=== PATIENT | male | born 1945 | race Caucasian/White ===

== ENCOUNTER 2018-08-06 08:08 | Emergency (ER) | payer OTHER, MEDICARE ==
[~2018-08-06] VITALS: Ht 180.3 cm; Wt 49.4 kg
--- OUTSIDE RECORDS SUMMARY | ~2018-08-06 | XMS | Encounter Summary ---
Demographics + + + | Address | [address] | | | [place] [address] | + + + | Home Phone | | + + + | Preferred Language | Unknown | + + + | Marital Status | | + + + | Methodist Affiliation | Unknown | + + + | Race | Unknown | + + + | Ethnic Group | Unknown | + + + Author + + + | Author | [facility] | | | and [place] | + + + | Organization | [facility] | | | and [place] | + + + | Address | Unknown | + + + | Phone | Unavailable | + + + Support + + + + + | Name | Relationship | Address | Phone | + + + + + | Cee Haddad | ECON | [address] | | | | | [place] | | | | | [address] | | + + + + + Care Team Providers + +------+ + | Care Program Management Specialist Name | Role | Phone | + +------+ + PCP | Unavailable | + +------+ + Encounter Details +--------+ + + + + | Date | Type | Department | Care Team | Description | +--------+ + + + + | 06/25/ | Imaging | [facility] | Provider, | | | 2019 | Exam | [facility] | MD [address] | | | | | IMAGING | [address] | | | | | [phone] | [place] [address] | | +--------+ + + + + Social History + +-------+ +--------+------+ | Tobacco Use | Types | Packs/Day | Years | Date | | | | | Used | | + +-------+ +--------+------+ | Never Assessed | | | | | + +-------+ +--------+------+ + + + | Sex Assigned at | Date Recorded | | | | + + + | Not on file | | + + + + + + + | Job Start Date | Occupation | Industry | + + + + | Not on file | Not on file | Not on file | + + + + + + + + | Travel History | Travel Start | Travel End | + + + + + + | No recent travel history available. | + + documented as of this encounter Plan of Treatment Not on filedocumented as of this encounter Procedures + +--------+ + + + | Procedure Name | Priori | Date/Time | Associated Diagnosis | Comments | | | ty | | | | + +--------+ + + + | CT CHEST W CONTRAST | Routin | 06/25/2018 | | Results for this | | | e | 13:35 PDT | | procedure are in the | | | | | | results section. | + +--------+ + + + documented in this encounter Results CT Chest w Contrast (06/25/2018 13:35 PDT) + + | Specimen | + + | | + + + + + | Narrative | Performed At | + + + | External films for comparison only | [facility] | | | | | No results will be in the chart. | | + + + + +---------+ + + | Performing | Address | City/State/Zipcode | Phone Number | | Organization | | | | + +---------+ + + | [facility] | | | | + +---------+ + + documented in this encounter Visit Diagnoses Not on filedocumented in this encounter"
--- OUTSIDE RECORDS SUMMARY | ~2018-08-06 | XMS | Clinical Summary ---
Demographics + + + | Home Phone | | + + + | Preferred Language | Unknown | + + + | Marital Status | Unknown | + + + | Pentecostal Affiliation | Unknown | + + + | Race | Unknown | + + + | Ethnic Group | Unknown | + + + Author + + + | Author | [facility] | + + + | Organization | [facility] | + + + | Address | Unknown | + + + | Phone | Unavailable | + + + Care Team Providers + +------+ + | Care Central Supply Technician Supervisor Name | Role | Phone | + +------+ + PP | Unavailable | + +------+ + Allergies Not on File Current Medications Not on file Active Problems Not on file Social History + +-------+ +--------+------+ | Tobacco [...] on file | | + + + Plan of Treatment Not on file Results Not on filefrom Last 3 Months"
--- OUTSIDE RECORDS SUMMARY | ~2018-08-06 | XMS | Encounter Summary ---
Demographics + + + | Address | [address] | | | [place] [address] | + + + | Home Phone | | + + + | Preferred Language | Unknown | + + + | Marital Status | | + + + | Pentecostalism Affiliation | Unknown | + + + | Race | Unknown | + + + | Ethnic Group | Unknown | + + + Author + + + | Author | [facility] | | | and [place] | + + + | Organization | [facility] | | | and [place] | + + + | Address | Unknown | + + + | Phone | Unavailable | + + + Support + + + + + | Name | Relationship | Address | Phone | + + + + + | Cee Haddad | ECON | [address] | | | | | [place], [place] | | | | | [address] | | + + + + + Care Team Providers + +------+ + | Care Book Critic Name | Role | Phone | + +------+ + PCP | Unavailable | + +------+ + Reason for Referral Diagnostic/Screening (Routine) +--------+--------+ + + + + | Status | Reason | Specialty | Diagnoses / | Referred By | Referred To | | | | | Procedures | Contact | Contact | +--------+--------+ + + + + | Closed | | Radiology | Diagnoses | | [address] | | | | | Primary | [place], | [address] | | | | | malignant | Tucker Stephens, | Simba Cottrell, | | | | | 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 [address] | [place] [address] | | | | | left lung | [address] | Phone: | | | | | metastatic | [place], | [phone] | | | | | to other | [place] [address] | Fax: | | | | | site (HCC) | Phone: | [phone] | | | | | Procedures | [phone] | | | | | | CT Guided | Fax: | | | | | | Biopsy Lung | [phone] | | | | | | Or | | | | | | | Mediastinum | | | +--------+--------+ + + + + Encounter Details +--------+ + + + + | Date | Type | Department | Care Team | Description | +--------+ + + + + | 07/05/ | Orders Only | [facility] | [place], | Primary malignant | | 2019 | | [facility] | Tucker Stephens MD [address] | neoplasm of left | | | | [facility] | [address] [place] | lung metastatic to | | | | [address] [place] | [place] [address] | other site (HCC) | | | | [place] [address] | [phone] | | | | | [phone] | | | +--------+ + + + + [...] Not on filedocumented as of this encounter Results CT Guided Biopsy Lung Or Mediastinum (07/22/2018 11:56 PDT) + + | Specimen | + + | | + + + + + | Narrative | Performed At | + + + | CT GUIDED BIOPSY LUNG OR MEDIASTINUM 07/22/2018 11:15 AM HISTORY: | [facility] | | CT guided left anterior lung/mediastinal biopsy. COMPARISON: Outside | | | imaging from 06/25/2018 PROTOCOL: After explaining the risks and | | | benefits of the procedure, informed consent was obtained from the | | | patient. Risks discussed included bleeding, infection, and | | | pneumothorax. Fentanyl and Versed were administered for conscious | | | sedation. The patient was placed in the supine position. Under CT | | | guidance, the left anterior lung/mediastinal mass was localized. This | | | area was cleansed and draped in the usual sterile fashion. Lidocaine | | | was used for local anesthesia. Additional lidocaine was injected at | | | the pleural surface to serve as a tamponade. A small skin camacho was | | | made. Using a 17-gauge introducer, the lesion was accessed. | | | Subsequently, biopsy was performed with 3 passes at 2. cm with an | | | 18-gauge The Dodo full core biopsy instrument. The patient tolerated | | | the procedure well. Post procedure CT imaging demonstrated a trace | | | pneumothorax, trace pneumomediastinum, and no bleeding. | | | IMPRESSION - Successful CT guided lung biopsy. There was a trace | | | pneumothorax/pneumomediastinum. One hour post biopsy chest x-ray has | | | been ordered. Dictated and Signed by: Andrés Hensley MD | | | Electronically signed: 07/22/2018 12:45 PM | | + + + + + | Procedure Note | + + | Alvino, Rad Results In - 07/22/[address] GUIDED BIOPSY LUNG OR MEDIASTINUM | | 07/22/2018 11:15 AMHISTORY: CT guided left anterior lung/mediastinal biopsy. COMPARISON: | | Outsideimaging from 06/25/2018PROTOCOL: After explaining the risks and benefits of the | | procedure, informed consent wasobtained from the patient. Risks discussed included | | bleeding, infection, andpneumothorax. Fentanyl and Versed were administered for | | conscious sedation. Thepatient was placed in the supine position. Under CT guidance, the | | left anteriorlung/mediastinal mass was localized. This area was cleansed and draped in | | theusual sterile fashion. Lidocaine was used for local anesthesia. Additionallidocaine | | was injected at the pleural surface to serve as a tamponade. A smallskin camacho was made. | | Using a 17-gauge introducer, the lesion was accessed.Subsequently, biopsy was performed | | with 3 passes at 2. cm with an 18-gaugeCorvacet full core biopsy instrument. The patient | | tolerated the procedure well.Post procedure CT imaging demonstrated a trace | | pneumothorax, tracepneumomediastinum, and no bleeding.IMPRESSION -Successful CT guided | | lung biopsy.There was a trace pneumothorax/pneumomediastinum. One hour post biopsy | | chestx-ray has been ordered.Dictated and Signed by: Andrés Hensley MD Electronically | | signed: 07/22/2018 12:45 PM | |Post procedure CT imaging demonstrated a trace pneumothorax, trace | |pneumomediastinum, and no bleeding. | | | |IMPRESSION - | |Successful CT guided lung biopsy. | | | |There was a trace pneumothorax/pneumomediastinum. One hour post biopsy chest | |x-ray has been ordered. 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
--- OUTSIDE RECORDS SUMMARY | ~2018-08-06 | XMS | Encounter Summary ---
Demographics + + + | Address | [address] | | | [place] [address] | + + + | Home Phone | | + + + | Preferred Language | Unknown | + + + | Marital Status | | + + + | Zoroastrian Affiliation | Unknown | + + + | Race | Unknown | + + + | Ethnic Group | Unknown | + + + Author + + + | Author | [facility] | | | and [place] | + + + | Organization | [facility] | | | and [place] [...] [place] | | | | | [address] | | + + + + + Care Team Providers + +------+ + | Care Glueline Worker Name | Role | Phone | + +------+ + PCP | Unavailable | + +------+ + Encounter Details +--------+ + + + + | Date | Type | Department | Care Team | Description | +--------+ + + + + | 06/25/ | Imaging | [facility] | Provider, | | | 2019 | Exam | [facility] | [address] | | | | | IMAGING | [place] | | | | | [phone] | [place] [address] | | +--------+ + + + + [...]
--- OUTSIDE RECORDS SUMMARY | ~2018-08-06 | XMS | Clinical Summary ---
Demographics + + + | Address | [address] | | | [place] [address] | + + + | Home Phone | | + + + | Preferred Language | Unknown | + + + | Marital Status | | + + + | Jehovah'S Witness Affiliation | Unknown | + + + | Race | Unknown | + + + | Ethnic Group | Unknown | + + + Author + + + | Author | [facility] | | | and [place] | + + + | Organization | [facility] | | | and [place] [...] [place] | | | | | [address] | | + + + + + Care Team Providers + +------+ + | Care Barrel Waterer Name | Role | Phone | + +------+ + | Satnam Daly MD | PP | | + +------+ + Allergies No Known Allergies Medications + + + +---------+------+------+-------+ | Medication | Sig | Dispensed | Refills | Star | End | Statu | | | | | | t | Date | s | | | | | | Date | | | + + + +---------+------+------+-------+ | Cholecalciferol | TAKE 1 CAPSULE BY | | 0 | 03/1 | | Activ | | (OPTIMAL-D) [id number] | MOUTH ONCE A WEEK | | | 4/20 | | e | | units CAPS | | | | 19 | | | + + + +---------+------+------+-------+ | denosumab (PROLIA) | Inject 60 mg into | | 0 | | | Activ | | 60 mg/mL injection | the vein. | | | | | e | + + + +---------+------+------+-------+ | ergocalciferol | Take 50,000 Units by | | 0 | 03/1 | | Activ | | (VITAMIN D-2) 50,000 | mouth every 7 days. | | | 5/20 | | e | | units capsule | | | | 19 | | | + + + +---------+------+------+-------+ | | Inhale 1 puff into | | 0 | 03/1 | | Activ | | fluticasone-umeclidi | the lungs. | | | 2/20 | | e | | nium-vilanterol | | | | 19 | | | | (ANNEL ELLIPTA) | | | | | | | | 100-62.5-25 mcg/puff | | | | | | | | inhaler | | | | | | | + + + +---------+------+------+-------+ | hydrOXYzine | TAKE 1 TABLET BY | | 0 | 02/1 | | Activ | | hydrochloride | MOUTH 4 TIMES DAILY | | | 8/20 | | e | | (ATARAX) 25 mg | NEEDED FOR | | | 19 | | | | tablet | ITCHING | | | | | | + + + +---------+------+------+-------+ | hydrOXYzine | | | 1 | 03/2 | | Activ | | hydrochloride | | | | 7/20 | | e | | (ATARAX) 25 mg | | | | 19 | | | | tablet | | | | | | | + + + +---------+------+------+-------+ | mirtazapine | Take 15 mg by mouth. | | 0 | 03/1 | | Activ | | (REMERON) 15 MG | | | | 2/20 | | e | | tablet | | | | 19 | | | + + + +---------+------+------+-------+ | mirtazapine | | | 1 | 04/1 | | Activ | | (REMERON) 15 MG | | | | 0/20 | | e | | tablet | | | | 19 | | | + + + +---------+------+------+-------+ | rOPINIRole | TAKE 1 TABLET BY | | 0 | 04/1 | | Activ | | (REQUIP) 1 mg tablet | MOUTH IN THE | | | 0/20 | | e | | | MORNING, TAKE 1 | | | 19 | | | | | TABLET BY MOUTH IN | | | | | | | | THE AFTERNOON AND | | | | | | | | TAKE 2 TABLETS BY | | | | | | | | MOUTH AT BEDTIME | | | | | | + + + +---------+------+------+-------+ | rOPINIRole | | | 0 | 04/1 | | Activ | | (REQUIP) 1 mg tablet | | | | 0/20 | | e | | | | | | 19 | | | + + + +---------+------+------+-------+ Active Problems + + + | Problem | Noted Date | + + + | 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 | 07/05/2018 | + + + + + | Overview: Cigarette smoking for 51 years up to two and 1/2 | | packs a day.Chest x-ray for evaluation of weight loss and cough | | at [facility] on June 11, 2018 | | demonstrated an anterior mediastinal mass.CT of chest with | | contrast at [place], [place] on June 25, 2018 | | demonstratedlarge heterogeneous rim-enhancing pleural-based mass | | in the medial aspect of the LEFT upper lobe extending from the | | level of the aortic knob down to the pulmonary trunk, measuring 6 | | x 4.5 x 4 cm and bilateral adrenal metastases, 1.8 cm x 2.4 cm | | on the right and 1.8 cm x 2.6 cm on the left. | + + Encounters +--------+ + + + + | Date | Type | Specialty | Care Team | Description | +--------+ + + + + | 07/22/ | Surgery | | Harris Garcia MD | CT LUNG BX | | 2018 | | | | | +--------+ + + + + | 07/22/ | Hospital | | Harris Garcia MD | Primary malignant | | 2019 | Encounter | | | neoplasm of left | | | | | | lung metastatic to | | | | | | other site (HCC) | +--------+ + + + + | 07/05/ | Orders Only | | Saba, | Primary malignant | | 2019 | | | Tucker Stephens MD | neoplasm of left | | | | | | lung metastatic to | | | | | | other site (HCC) | +--------+ + + + + | 06/25/ | Imaging | | Provider, | | | 2018 | Exam | | MD Alberto | | +--------+ + + + + from Last 3 Months Social History + + + +--------+------+ | Tobacco Use | Types | Packs/Day | Years | Date | | | | | Used | | + + + +--------+------+ | Current Every Day | Cigarettes | 2.5 | 51 | | | Smoker | | | | | + + + +--------+------+ + + + | Sex Assigned [...] recent travel history available. | + + Last Filed Vital Signs + + + + | Vital Sign | Reading | Time Taken | + + + + | Blood Pressure | 136/78 | 07/22/2018 1315 PDT | + + + + | Pulse | 93 | 07/22/2018 1315 PDT | + + + + | Temperature | 36.4 C (97.5 F) | 07/22/2018 1024 PDT | + + + + | Respiratory Rate | 21 | 07/22/2018 1151 PDT | + + + + | Oxygen Saturation | 97% | 07/22/2018 1315 PDT | + + + + | Inhaled Oxygen | - | - | | Concentration | | | + + + + | Weight | 52.2 kg (115 lb) | 07/22/20181023 PDT | + + + + | Height | 180.3 cm (5' 11") | 07/22/20181023 PDT | + + + + | Body Mass Index | 16.04 | 07/22/20181023 PDT | + + + + Plan of Treatment + + + + + | Health Maintenance | Due Date | Last Done | Comments | + + + + + | Hepatitis C | | | | | Screening | 7 | | | + + + + + | Vaccine: | | | | | Dtap/Tdap/Td (1 - | 6 | | | | Tdap) | | | | + + + + + | Vaccine: Zoster (1 | | | | | of 2) | 7 | | | + + + + + | AAA Screening | | | | | | 2 | | | + + + + + | Vaccine: | | | | | Pneumococcal 65+ | 2 | | | | High/Highest Risk (1 | | | | | of 2 - PCV13) | | | | + + + + + | Colorectal Cancer | | 04/02/2008 | | | Screening | 9 | | | | (Colonoscopy) | | | | + + + + + | Adult Annual | | | | | Wellness Visit | 9 | | | + + + + + | Vaccine: Influenza | | 04/20/2012 | | | (Season Ended) | 9 | | | + + + + + Procedures + +--------+ + + + | Procedure Name | Priori | Date/Time | Associated Diagnosis | Comments | | | ty | | | | + +--------+ + + + | XR CHEST AP PORTABLE | Routin | 07/22/2018 | | Results for this | | | e | 13:14 PDT | | procedure are in the | | | | | | results section. | + +--------+ + + + | CT GUIDED BIOPSY | Routin | 07/22/2018 | Primary malignant | Results for this | | LUNG OR MEDIASTINUM | e | 11:56 PDT | neoplasm of left | procedure are in the | | | | | lung metastatic to | results section. | | | | | other site (HCC) | | + +--------+ + + + | DI: CT | | 07/22/2018 | Primary malignant | | | | | 10:00 PDT | neoplasm of left | | | | | | lung metastatic to | | | | | | other site (HCC) | | + +--------+ + + + +---+--------+ | | Case | | | Notes | | | H&P | | | 4 by | | | | | | [facility] | | | nbush | | | at [facility] | | | | | | [place] | | | y | +---+--------+ | | | | | Specia | | | l | | | Needs | | | PT TO | | | CHECK | | | IN AT | | | 0900 | +---+--------+ + +--------+ +---+ + | SURGICAL PATHOLOGY | Routin | 07/22/2018 | | Results for this | | EXAM | e | 0:00 PDT | | procedure are in the | | | | | | results section. | + +--------+ +---+ + | LABS - EXTERNAL SCAN | | 07/18/2018 | | Results for this | | | | 0:00 PDT | | procedure are in the | | | | | | results section. | + +--------+ +---+ + | CT CHEST W CONTRAST | Routin | 06/25/2018 | | Results for this | | | e | 13:35 PDT | | procedure are in the | | | | | | results section. | + +--------+ +---+ + from Last 3 Months Results XR Chest AP Portable (07/22/2018 13:14 PDT) + + | Specimen | + + | | + + + + + | Narrative | Performed At | + + + | SINGLE AP CHEST 07/22/2018 12:59 PM CLINICAL HISTORY: post lung | [facility] | | biopsy COMPARISON: Images from preceding CT guided left lung | | | biopsy FINDINGS: A tiny left apical pneumothorax is again | | | demonstrated. Left suprahilar mass is again visualized. The | | | cardiomediastinal silhouette and pulmonary vasculature are otherwise | | | unremarkable. No pleural effusion is visible. The lungs appear | | | hyperinflated but otherwise clear. Osteopenia is suggested. | | | IMPRESSION - 1. TINY LEFT APICAL PNEUMOTHORAX FOLLOWING LUNG | | | BIOPSY PERFORMED EARLIER IN THE DAY. Dictated and Signed by: | | | Yayo Felix MD Electronically signed: 07/22/2018 4:30 PM | | + + + + + | Procedure Note | + + | Alvino, Rad Results In - 07/22/2018 1633 PDT SINGLE AP CHEST 07/22/2018 12:59 PM | | | | CLINICAL HISTORY: post lung biopsy | | | | COMPARISON: Images from preceding CT guided left lung biopsy | | | | FINDINGS: A tiny left apical pneumothorax is again demonstrated. Left | | suprahilar mass is again visualized. The cardiomediastinal silhouette and | | pulmonary vasculature are otherwise unremarkable. No pleural effusion is | | visible. The lungs appear hyperinflated but otherwise clear. Osteopenia is | | suggested. | | | | IMPRESSION - | | | | 1. TINY LEFT APICAL PNEUMOTHORAX FOLLOWING LUNG BIOPSY PERFORMED EARLIER IN | | THE DAY. | | | | Dictated and Signed by: Yayo Felix MD | | Electronically signed: 07/22/2018 4:30 PM | + + + +---------+ + + | Performing | Address | City/State/Zipcode | Phone Number | | Organization | | | | + +---------+ + + | [facility] | | | | + +---------+ + + CT Guided Biopsy Lung Or Mediastinum (07/22/2018 [...] cm with an | | | 18-gauge Selftrade full core biopsy instrument. The patient tolerated [...] | | | + +---------+ + + Surgical Pathology Exam (07/22/2018 0:00 PDT) + + | Specimen | + + | Tissue | + + + + + | Narrative | Performed At | + + + | SPECIMEN(S): A MEDIASTINUM SPECIMEN SOURCE: A. MEDIASTINUM | [facility] | | CLINICAL HISTORY: CT-guided mediastinum biopsy. Primary malignant | [facility] | | neoplasm of left lung, metastatic to other site. 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 (See Comment) COMMENT: Immunohistochemical | | | studies support primary lung adenocarcinoma. ALK / EGFR / ROS-1 | | | testing is recommended. If testing is desired, please contact [facility] | | | Diagnostic with prior authorization if applicable. As part of | | | [facility]' Quality Improvement Program, this case was | | | reviewed by another member of our pathology staff. | | | JVR:CLR:[facility]:C1NR MICROSCOPIC EXAMINATION: Histologic sections of | | | all submitted blocks are examined by light microscopy. These | | | findings, together with the gross examination, support the pathologic | | | diagnosis. Immunostains are performed on block (A2) with | | | appropriate controls and show the following: - CK7: Positive in | | | tumor cells. - TTF:1: Positive in tumor nuclei. - Napsin A: | | | Positive in tumor cells. JVR:[facility] GROSS DESCRIPTION: The | | | specimen, received in formalin, labeled "mediastinum," consists of | | | five kirk-white to kirk-brown tissue cores with a diameter of 0.1 cm and | | | a length ranging from 0.1 to 1.7 cm. The cores are dyed blue with | | | a diluted ink and entirely submitted in (A1-A3). am:BES:[facility]rf | | | PERFORMING LABORATORY: The technical component was performed by | | | [facility], [address] [place] [id number] (Medical | | | Director: Radha Sanford MD; CLIA# [id number]). Professional | | | [facility] | | | [address] | | | [address] (Civil Process Server: Sincere Torre M.D.). | | | Diagnostician: Sincere Torre MD Pathologist Electronically | | | Signed 07/24/2018 | | + + + + +---------+ + + | Performing | Address | City/State/Zipcode | Phone Number | | Organization | | | | + +---------+ + + | [facility] | | | | | [facility] | | | | + +---------+ + + LABS - EXTERNAL SCAN (07/18/2018 0:00 PDT) + + + | Narrative | Performed At | + + + | Ordered by an | | | unspecified provider. | | + + + CT Chest w Contrast (06/25/2018 13:35 PDT) [...] | | | + +---------+ + + from Last 3 Months Insurance + +--------+ +--------+ + +--------+ | Payer | Benefi | Subscriber | Effect | Phone | Address | Type | | | t Plan | ID | leena | | | | | | / | | Dates | | | | | | Group | | | | | | + +--------+ +--------+ + +--------+ | MODA | MODA | [id number] | | [phone] | [address] | PPO | | | [place] | | [address] [phone] | [id number] | | | | [place] | | esent | | [place], | | | | [place] | | | | [place] [address] | | + +--------+ +--------+ + +--------+ | MEDICARE | MEDICA | [id number] | 12/02/19 | [phone] | | Medica | | | RE | | 14-Pre | 5 | | re | | | PART A | | sent | | | | | | AND B | | | | | | + +--------+ +--------+ + +--------+ | CIGNA | CIGNA | [id number] | 07/05/19 | [phone] | | Indemn | | | MDCR | | 19-Pre | 1 | | ity | | | SUPPLE | | sent | | | | | | MENT | | | | | | | | SOLUTI | | | | | | | | ONS | | | | | | + +--------+ +--------+ + +--------+ + +--------+ +--------+ + + | Guarantor Name | Accoun | Relation to | Date | Phone | Billing Address | | | t Type | Patient | of | | | | | | | | | | + +--------+ +--------+ + + | Dk Haddad | Person | Self [birth year] | [address] | | | al/Fam | | 1945 | [phone] | [place] [address] | | | cabrera | | | 6 (Home) | | + +--------+ +--------+ + + Advance Directives Patient has advance care planning documents on file. For more information, please contact:[facility] [place] [address]
--- OUTSIDE RECORDS SUMMARY | ~2018-08-06 | XMS | Encounter Summary ---
Demographics + + + | Address | [address] | | | [place] [address] | + + + | Home Phone | | + + + | Preferred Language | Unknown | + + + | Marital Status | | + + + | Catholic Affiliation | Unknown | + + + | Race | Unknown | + + + | Ethnic Group | Unknown | + + + Author + + + | Author | [facility] | | | and [place] | + + + | Organization | [facility] | | | and [place] [...] [place] | | | | | [address] | | + + + + + Care Team Providers + +------+ + | Care Power Truck Driver Name | Role | Phone | + +------+ + | Satnam Daly MD | PCP | | + +------+ + Reason for Visit Auth/Cert +--------+--------+ + + + + | Status | Reason | Specialty | Diagnoses / | Referred By | Referred To | | | | | Procedures | Contact | Contact | +--------+--------+ + + + + | | | | Diagnoses | | | | | | | 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 | | | | | | | to other | | | | | | | site (HCC) | | | | | | | Procedures | | | | | | | CT LUNG BX | | | +--------+--------+ + + + + Encounter Details +--------+---------+ + + + | Date | Type | Department | Care Team | Description | +--------+---------+ + + + | 07/22/ | Surgery | [facility] | Harris Garcia MD | CT LUNG BX | | 2019 | | [facility] | [address] | | | | | [address] | [place] | | | | | [place] | [address] | | | | | [address] | [phone] | | | | | [phone] | | | +--------+---------+ + + + Social History + + + +--------+------+ | [...] + + documented as of this encounter Last Filed Vital Signs + + + + | Vital Sign | Reading | Time Taken | + + + + | Blood Pressure | 136/78 | 07/22/2018 1315 PDT | + + + + | Pulse | 93 | 07/22/2018 1315 PDT | + + + + | Temperature | 36.4 C (97.5 F) | 07/22/20181023 PDT | + + + [...] | Body Mass Index | 16.04 | 07/22/2018 1024 PDT | + + + + documented in this encounter Discharge Instructions Instructions Tee Cardenas RN - 07/22/2018Formatting of this note might be different fr om the original. Discharge Instructions Needle Biopsy:Lung You had a procedure called a needle biopsy of one of your lungs. In this procedure, a hollo w needle is used to take one or more samples of your lung tissue. The tissue is then examine d under a microscope. There are several different types of needle biopsies. Two types are: Fine needle aspiration. A small amount of tissue is withdrawn (aspirated) using a very f ine needle. Core biopsy. A larger tissue sample is removed for examination. A biopsy needle is inserted through your skin into your chest and lung. This is called a tr ansthoracic approach, which means across or through the chest (thorax). Scans are done at th e same time so that your provider can find the area where he or she would like to sample tis shelia. Needle biopsies do not require cuts or incisions into the body like open biopsies. Your healthcare provider will use the results of your biopsy to help diagnose your conditio n. Home care The site of the biopsy may feel numb for a while if you received numbing medicine. You might have a little soreness following the needle biopsy. Follow your healthcare provider's instructions about removing bandages and showering or bathing. You may be sleepy after the biopsy if you received medicine to help you relax (sedation) . You should not drive until the next day or as instructed by your healthcare provider. You should not do heavy lifting, a lot of stair climbing, or take part in sports the day of your biopsy. You can get back to your regular activities as instructed by your healthcar e provider. Follow-up care Follow up with your healthcare provider, or as advised. Be sure you make an appointment wit h your healthcare provider to discuss the biopsy results. When to seek medical advice Call your healthcare provider right away if any of these occur: Infection. You might have redness, pain, swelling, or drainage at the site of your biops ies. Bleeding. You might also have bleeding at the site of your biopsies. Coughing up blood. This may only be a small amount. Collapsed lung (pneumothorax). This means that air from your lungs leaks out into the sp aces between your lungs and chest wall. It can lead to trouble breathing and a collapsed payton g. Watch for trouble breathing, a fast pulse, sharp pains in your chest or shoulder, and jason julieta skin Date Last Reviewed: 05/03/201619997635-1877 [email or web address]. [address] [place] [address], [place] [address]. All righ ts reserved. This information is not intended as a substitute for professional medical care. Always follow your healthcare professional's instructions. CT-Guided Lung Biopsy CT-guided lung biopsy is a procedure to collect small tissue samples from an abnormal area in your lung. During the procedure, an imaging method called CT (computed tomography) is use d to show live pictures of your lung. Then a thin needle is used to remove the tissue sample s. The samples are tested in a lab for cancer and other problems. For the biopsy, a thin needle is used to remove samples of tissue from an abnormal area in the lung. Getting ready for your procedure Follow any instructions from your healthcare provider. Tell your provider about any medicines you are taking. It is important for your provider to know if you are taking any blood-thinning medicines or have a bleeding disorder. You may need to stop taking all or somemedicine before the procedure. This includes: All prescription medicines Blood-thinning medicines (anticoagulants) Vbdi-lcc-yzmiomw medicines such as aspirin or ibuprofen Street drugs Herbs, vitamins, and other supplements Also tell your provider if you: Are or think you may be Are Are allergic to or have intolerances to any medicines Have a chronic cough, new cough, or other illness Use oxygen therapy at home Smoke or drink alcohol on a regular basis Follow any directions you re given for not eating or drinking before the procedure. The day of your procedure The procedure takes about 60 minutes. The entire procedure (including time to prepare and r ecover) takes several hours. You ll likely go home the same day. Before the procedure begins: An IV (intravenous) line may be put into a vein in your hand or arm. This line supplies fluids and medicines. To keep you free of pain during the procedure, you may be given anesthesia. Depending on the type of anesthesia used, you may be awake, drowsy, or in a deep sleep for the procedure . During the procedure: You ll lie on a CT scan table. You may be on your back, side, or stomach. Pictures of your lung are then taken using the CT scanner. This helps your provider find the best place to position the needle in your lungs. A eileen is made on your skin where the needle will be inserted (biopsy site). The site is injected with numbing medicine. Using the CT pictures as a guide, the needle is passed through the numbed skin between y our ribs and into your lung. Samples of tissue are then removed from the abnormal area in yo ur lung. The samples are sent to a lab to be checked for problems. When the procedure is complete, the needle is removed. Pressure is applied to the biopsy site to help stop any bleeding. The site is then bandaged. After the procedure: You ll be taken to a room to rest until the anesthesia wears off. A chest X-ray may be done.This isto make sure there was no damage to your lungs or t he area where the needle was placed. When it s time for you to go home, have an adult family member or friend ready to driv e you. Recovering at home You may cough up a small amount of blood shortly after the procedure. Later, you may also h ave some soreness around the biopsy site. Once at home, follow any instructions you re giv en. Be sure to: Take all medicines as directed. Care for the biopsy site as instructed. Check for signs of infection at the biopsy site (see below). Don't bathe or shower until your provider says it's OK. If you wish, you may wash with a sponge or washcloth. Don't lift anything heavy or do strenuous activities, as directed. If you plan any airtravel,ask your provider when you can do so. You may be told not to fly for a few weeks. This is becausepressure changesmay affectyour lungs. When to call your healthcare provider Call 911 or your local emergency number if you have sudden, severe difficulty breathing. Th is could be a life-threatening emergency. Call your healthcare provider for less severe symptoms that are still concerning. If you ar e unable to speak with your provider, go to the emergency room if you have any of the follow ing symptoms: Fever of 100.4F (38C) or higher, or as directed by your healthcare provider Sudden chest pain, shortness of breath, or fainting Coughing up increasing amounts of blood Signs of infection at the biopsy site, such as increased redness or swelling, warmth, mo re pain, bleeding, or bad-smelling drainage Follow-up The provider who orderedyour test will discuss the biopsy results with you during a follo w-up visit.Results are usually ready within 1 to 2 weeks. If more tests or treatments are needed, your provider will discuss these with you. Risks and possible complications An air leak in your lung (pneumothorax), which may requirea stay in the hospital and t reatment to re-inflate the lung Bleeding into or around the lung Infection in the skin or lung Injury to other structures in the chest Risks of anesthesia. These will be discussed with you before the procedure. Date Last Reviewed: 08/31/201619992918-0171 [email or web address]. [address] [place] [address]. All righ ts reserved. This information is not intended as a substitute for professional medical care. Always follow your healthcare professional's instructions. Recovery After Procedural Sedation (Adult) You have been given medicine by vein to make you sleep during your procedure. This may have included both a pain medicine and sleeping medicine. Most of the effects have worn off. But you may still have some drowsiness for the next 6 to 8 hours. Home care Follow these guidelines when you get home: For the next 8 hours, you should be watched by a responsible adult. This person should m es sure your condition is not getting worse. Don't drink any alcoholfor the next [address], operate dangerous machinery,make important business or personal decisions , or sign legal documentsduring the next 24 hours. Note: Your healthcare provider may tell you not to take any medicine by mouth for pain or s leep in the next 4 hours. These medicines may react with the medicines you were given in the hospital. This could cause a much stronger response than usual. Follow-up care Follow up with your healthcare provider if you are not alert and back to your usual level o f activity within 12 hours. When to seek medical advice Call your healthcare provider right away if any of these occur: Drowsiness gets worse Weakness or dizziness gets worse Repeated vomiting You can't be awakened Date Last Reviewed: 01/18/201619991771-1445 [email or web address]. [address] [place] [address], [place] [address]. All righ ts reserved. This information is not intended as a substitute for professional medical care. Always follow your healthcare professional's instructions. documented in this encounter Medications at Time of Discharge + + + +---------+ + + | Medication | Sig | Dispensed | Refills | Start | End Date | | | | | | Date | | + + + +---------+ + + | Cholecalciferol | TAKE 1 CAPSULE BY | | 0 | 06/14/19 | | | (OPTIMAL-D) [id number] | MOUTH ONCE A WEEK | | | 19 | | | units CAPS | | | | | | + + + +---------+ + + | denosumab (PROLIA) | Inject 60 mg into | | 0 | | | | 60 mg/mL injection | the vein. | | | | | + + + +---------+ + + | ergocalciferol | Take 50,000 Units by | | 0 | 06/15/19 | | | (VITAMIN D-2) 50,000 | mouth every 7 days. | | | 19 | | | units capsule | | | | | | + + + +---------+ + + | | Inhale 1 puff into | | 0 | 06/12/19 | | | fluticasone-umeclidi | the lungs. | | | 19 | | | nium-vilanterol | | | | | | | (TRELEGY ELLIPTA) | | | | | | | 100-62.5-25 mcg/puff | | | | | | | inhaler | | | | | | + + + +---------+ + + | hydrOXYzine | TAKE 1 TABLET BY | | 0 | 05/20/19 | | | hydrochloride | MOUTH 4 TIMES DAILY | | | 19 | | | (ATARAX) 25 mg | NEEDED FOR | | | | | | tablet | ITCHING | | | | | + + + +---------+ + + | hydrOXYzine | | | 1 | 06/27/19 | | | hydrochloride | | | | 19 | | | (ATARAX) 25 mg | | | | | | | tablet | | | | | | + + + +---------+ + + | mirtazapine | Take 15 mg by mouth. | | 0 | 06/12/19 | | | (REMERON) 15 MG | | | | 19 | | | tablet | | | | | | + + + +---------+ + + | mirtazapine | | | 1 | 07/11/19 | | | (REMERON) 15 MG | | | | 19 | | | tablet | | | | | | + + + +---------+ + + | rOPINIRole | TAKE 1 TABLET BY | | 0 | 07/11/19 | | | (REQUIP) 1 mg tablet | MOUTH IN THE | | | 19 | | | | MORNING, TAKE 1 | | | | | | | TABLET BY MOUTH IN | | | | | | | THE AFTERNOON AND | | | | | | | TAKE 2 TABLETS BY | | | | | | | MOUTH AT BEDTIME | | | | | + + + +---------+ + + | rOPINIRole | | | 0 | 07/11/19 | | | (REQUIP) 1 mg tablet | | | | 19 | | + + + +---------+ + + documented as of this encounter [...] | | | H&P | | | 4/5 by | | | | | | [facility] | | | nbush | | | at [facility] | | | | | | [facility] | | | y | +---+--------+ | [...] results section. | + +--------+ +---+ + documented in this encounter Results XR Chest AP Portable (07/22/2018 13:14 [...] cm with an | | | 18-gauge Alcyone [employer] full core biopsy instrument. The patient tolerated [...] recommended. If testing is desired, please contact [employer] | | | Diagnostic with prior authorization if applicable. As part of | | | [employer] [facility]' Quality Improvement Program, this case was | | | reviewed by another member of our pathology staff. | | | JVR:[facility]:C1NR MICROSCOPIC EXAMINATION: Histologic sections of | | [...] | | | Positive in tumor cells. JVR:[facility] GROSS DESCRIPTION: The | | | specimen, received in formalin, labeled "mediastinum," consists of | | | five kirk-white to kirk-brown tissue cores with a diameter of 0.1 cm and | | | a length ranging from 0.1 to 1.7 cm. The cores are dyed blue with | | | a diluted ink and entirely submitted in (A1-A3). am:STEPHANIE:mrf | | | PERFORMING LABORATORY: The technical component was performed by | | | [facility], [address] [place] [address] (Medical | | | Director: Radha Sanford MD; CLIA# [id number]). [facility] | | | [facility] | [address] | | | [address] (Armature Bander: Sincere Torre M.D.). | | | Diagnostician: [...] unspecified provider. | | + + + documented in this encounter Visit Diagnoses Not on filedocumented in this encounter Administered Medications + +--------+---------+------+------+------+ | Medication Order | MAR | Action | Dose | Rate | Site | | | Action | Date | | | | + +--------+---------+------+------+------+ + +---+ | diphenhydrAMINE (BENADRYL) | | | injection 25-50 mg 25-50 mg, | | | Intravenous, EVERY 4 HOURS PRN, | | | Itching, Allergies, | | | Pre-procedural or | | | intra-procedural for patient | | | undergoing moderate sedation., | | | Starting Sun07/22/18 at 1054, | | | Intra-op | | + +---+ | | | + +---+ | fentaNYL (PF) injection 25-100 | | | mcg 25-100 mcg, Intravenous, | | | CONTINUOUS PRN, Other, Frequency | | | up to q2 minutes to titrate up to | | | (and not exceed) ADRIANNE score of | | | 3 for intra-procedural moderate | | | sedation., Starting Sun07/22/18 | | | at 1054, Intra-op | | + +---+ | | | + +---+ + +-------+ +--------+---+---+ | fentaNYL (PF) injection PRN, | Given | 07/23/19 | 25 mcg | | | | Starting Sun07/22/18 at 1137 | | 19 11:37 | | | | | | | PDT | | | | + +-------+ +--------+---+---+ + +---+ | | | + +---+ | flumazenil (ROMAZICON) | | | injection 0.2 mg 0.2 mg, | | | Intravenous, PRN, Decreased | | | Responsiveness, For rescue in | | | case of decreased responsiveness | | | or accidental Deep/General | | | sedation during a moderate | | | sedation procedure. For use in | | | ADRIANNE score's greater than or | | | equal to 4, Starting Sun07/22/18 | | | at 1054, Intra-op | | + +---+ | | | + +---+ | heparin 100 units/mL flush | | | injection 500 Units 500 Units (5 | | | mL), Intracatheter, PRN, Line | | | Care, Starting 07/22/18 at | | | 1210, If port was used flush with | | | 5 ml of heparin 100 units/mL, | | | Post-op/Phase II | | + +---+ | | | + +---+ | midazolam (VERSED) 1 mg/mL | | | injection 0.5-2 mg 0.5-2 mg, | | | Intravenous, CONTINUOUS PRN, | | | Anxiety, Sedation, frequency up | | | to q2 minutes to titrate up to | | | (and not exceed) ADRIANNE score of | | | 3 for intra-procedural moderate | | | sedation., Starting 07/22/18 | | | at 1054, Intra-op | | + +---+ | | | + +---+ + +-------+ +------+---+---+ | midazolam (VERSED) 1 mg/mL | Given | 07/23/19 | 1 mg | | | | injection PRN, Starting Sun | | 19 11:39 | | | | | 07/22/18 at 1137 | | PDT | | | | + +-------+ +------+---+---+ +-------+ +--------+---+---+ | Given | 07/23/19 | 1.5 mg | | | | | 19 11:37 | | | | | | PDT | | | | +-------+ +--------+---+---+ + +---+ | | | + +---+ | naloxone (NARCAN) 0.4 mg/mL | | | injection 0.4-1 mg 0.4-1 mg, | | | Intravenous, PRN, Apnea, | | | Decreased Responsiveness, For | | | rescue in case of decreased | | | responsiveness or accidental | | | Deep/General sedation during a | | | moderate sedation | | | procedure. For use in [place]MAN | | | score's greater than or equal to | | | 4, Starting 07/22/18 at 1054, | | | Intra-op | | + +---+ | | | + +---+ | sodium chloride 0.9% (NS) | | | infusion at 50 mL/hr, | | | Intravenous, CONTINUOUS, Starting | | | 07/22/18 at 1115, OK to use | | | implantable port., Pre-op | | + +---+ | | | + +---+ documented in this encounter
--- OUTSIDE RECORDS SUMMARY | ~2018-08-06 | XMS | Clinical Summary ---
Demographics + + + | Address | [address] | | | [place] [address] | + + + | Home Phone | | + + + | Preferred Language | Unknown | + + + | Marital Status | | + + + | Nondenominational Affiliation | Unknown | + + + | Race | Unknown | + + + | Ethnic Group | Unknown | + + + Author + + + | Author | [facility] | | | and [place] | + + + | Organization | [facility] | | | and [...] [place] | | | | | [address] | | + + + + + Care Team Providers + +------+ + | Care Employee Communications Intern Name | Role | Phone | + [...] 03/1 | | Activ | | (OPTIMAL-D) [id number] | MOUTH ONCE A WEEK | | [...] weight loss and cough | | at [facility] on June 11, 2018 | | demonstrated an anterior mediastinal mass.CT of chest with | | contrast at [place], [place] on June 25, 2018 | | [...] St. | | | | | | [place] | | | y | +---+--------+ | [...] cm with an | | | 18-gauge [employer] full core biopsy instrument. The patient tolerated [...] recommended. If testing is desired, please contact [employer] | | | Diagnostic with prior authorization if applicable. As part of | | | [facility]' Quality Improvement Program, this case was | | | reviewed by another member of our pathology staff. | | | JVR:CLR:[facility]:C1NR MICROSCOPIC EXAMINATION: Histologic sections of | [...] | | | Positive in tumor cells. JVR:[facility] GROSS DESCRIPTION: The | | | [...] component was performed by | | | [facility], [address] [place] [id number] (Medical | | | Director: Radha Sanford MD; CLIA# [id number]). Professional | | | interpretation was performed by [facility] | | | [address] | | | [address] (Store Merchandiser: Sincere Torre M.D.). | | | Diagnostician: [...] + +--------+ | MODA | MODA | [id number] | | [phone] | [address] | PPO | | | [employer] | | [address] | [phone] | [phone] | | | | [place] | | esent | | [place], | | | | [place] | | | | [place] [address] | | + +--------+ +--------+ + +--------+ | MEDICARE | MEDICA | [id number] | 12/02/19 | [phone] | | Medica | | | RE | | 14-Pre | 5 | | re | | | PART A | | sent | | | | | | AND B | | | | | | + +--------+ +--------+ + +--------+ | CIGNA | CIGNA | [id number] | 07/05/19 | [phone] | | Indemn [...] | 1945 | [phone] | [place] [address] | | | cabrera | | | 6 (Home) | | + +--------+ +--------+ + + Advance Directives Patient has advance care planning documents on file. For more information, please contact:[facility] [place] [address]
--- OUTSIDE RECORDS SUMMARY | ~2018-08-06 | XMS | Clinical Summary ---
Demographics + + + | Home Phone | | + + + | Preferred Language | Unknown | + + + | Marital Status | Unknown | + + + | Jain Affiliation | Unknown | + + + | Race | Unknown | + + + | Ethnic Group | Unknown | + + + Author + + + | Author | [facility] | + + + | Organization | [facility] | + + + | Address | Unknown | + + + | Phone | Unavailable | + + + Care Team Providers + +------+ + | Care Trench Digger Helper Name | Role | Phone | + [...]
--- OUTSIDE RECORDS SUMMARY | ~2018-08-06 | XMS | Encounter Summary ---
Demographics + + + | Address | [address] | | | [place] [address] | + + + | Home Phone | | + + + | Preferred Language | Unknown | + + + | Marital Status | | + + + | Christianity Affiliation | Unknown | + + + | Race | Unknown | + + + | Ethnic Group | Unknown | + + + Author + + + | Author | [facility] | | | and [place]ai[place] | + + + | Organization | [facility] | | | and [...] [place] | | | | | [address] | | + + + + + Care Team Providers + +------+ + | Care Career Transition Specialist Name | Role | Phone | + +------+ + | Satnam Daly MD | PCP | | + +------+ + Reason for Referral [...] | | Primary | Saba, | [address]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, | [place], | | | | | 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 [address] | [place] [address] | | | | | left lung | [address] | Phone: | | | | | metastatic | [place], | [phone] | | | | | to other | [place] [address] | Fax: | | | | | site (HCC) | Phone: | [phone] | | | | | Procedures | [phone] | | | | | | CT Guided | Fax: | | | | | | Biopsy Lung | [phone] | | | | | | Or | | | | | | | Mediastinum | | | +--------+--------+ + + + + Diagnostic/Screening (Routine) +--------+--------+ + + + + | Status | Reason | Specialty | Diagnoses / | Referred By | Referred To | | | | | Procedures | Contact | Contact | +--------+--------+ + + + + | Closed | | Radiology | Diagnoses | | [address] | | | | | Primary | Saba, | [address]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, | [place], | | | | | 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 [address] | [place] [address] | | | | | left lung | [address] | Phone: | | | | | metastatic | [place], | [phone] | | | | | to other | [place] [address] | Fax: | | | | | site (HCC) | Phone: | [phone] | | | | | Procedures | [phone] | | | | | | CT Guided | Fax: | | | | | | Biopsy Lung | [phone] | | | | | | Or | | | | | | | Mediastinum | | | +--------+--------+ + + + + Reason for Visit Auth/Cert +--------+--------+ + [...] + + | 07/22/ | Hospital | [facility] | Harris Garcia MD | 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 [address] [place] [address]. All righ ts reserved. This information is [...] includes: All prescription medicines Blood-thinning medicines (anticoagulants) Hsqz-byc-dfqwmdd medicines such as aspirin or ibuprofen Street [...] you before the procedure. Date Last Reviewed: 08/31/201619994882-1146 [employer] [address] [place] [address]. All righ ts reserved. This information is [...] You can't be awakened Date Last Reviewed: 01/18/201619992414-2227 [employer]. [address] [place] [address], [place] [address]. All righ ts reserved. This information is [...] 0 | 06/14/19 | | | (OPTIMAL-D) 38169 | MOUTH ONCE A WEEK | | [...] St. | | | | | | [place] | | | y | +---+--------+ | [...] cm with an | | | 18-gauge [employer] full core biopsy instrument. The patient tolerated [...] recommended. If testing is desired, please contact [facility] | | | Diagnostic with prior authorization if applicable. As part of | | | [facility]' Quality Improvement Program, this case was | | | reviewed by another member of our pathology staff. | | | JVR:CLR:daija:C1NR MICROSCOPIC EXAMINATION: Histologic sections of | | [...] | | | Positive in tumor cells. JVR:[facility] GROSS DESCRIPTION: The | | | specimen, received in formalin, labeled "mediastinum," consists of | | | five kirk-white to kirk-brown tissue cores with a diameter of 0.1 cm and | | | a length ranging from 0.1 to 1.7 cm. The cores are dyed blue with | | | a diluted ink and entirely submitted in (A1-A3). am:BES:mrtenisha | | | PERFORMING LABORATORY: The technical component was performed by | | | [facility], [address] [place] [address] (Medical | | | Director: Radha Sanford MD; IA# [id number]). Professional | | | interpretation was performed by [facility] | | | [address] | | | [address] (Cloth Dyer: Sincere Torre M.D.). | | | Diagnostician: [...] (HCC) | + + documented in this encounter Administered Medications + +--------+---------+------+------+------+ [...] undergoing moderate sedation., | | | Starting 07/22/18 at 1054, | | | [...] PRN, Line | | | Care, Starting Sun07/22/18 at | | | 1210, If port [...] | | | | injection PRN, Starting Mon | | 19 11:39 | | | [...] | | | procedure. For use in [place] | | | score's greater than or equal to | | | 4, Starting Sun07/22/18 at 1054, | | | Intra-op | | + +---+ | | | + +---+ | sodium chloride 0.9% (NS) | | | infusion at 50 mL/hr, | | | Intravenous, CONTINUOUS, Starting | | | Sun07/22/18 at 1115, OK to use | | | implantable port., Pre-op | | + +---+ | | | + +---+ documented in this encounter
--- OUTSIDE RECORDS SUMMARY | ~2018-08-06 | XMS | Encounter Summary ---
Demographics + + + | Address | [address] | | | [place] [address] | + + + | Home Phone | | + + + | Preferred Language | Unknown | + + + | Marital Status | | + + + | Zoroastrianism Affiliation | Unknown | + + + | Race | Unknown | + + + | Ethnic Group | Unknown | + + + Author + + + | Author | [facility] | | | and [place] | + + + | Organization | [facility] | | | and [place] [...] [place] | | | | | [address] | | + + + + + Care Team Providers + +------+ + | Care Director Of Convention Services Name | Role | Phone | + +------+ + | Satnam Dlay MD | PCP | | + +------+ [...] | | Primary | Saba, | [address]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, | [place], | | | | | 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 [address] | [place] [address] | | | | | left lung | [address] | Phone: | | | | | metastatic | [place], | [phone] | | | | | to other | [place] [address] | Fax: | | | | | site (HCC) | Phone: | [phone] | | | | | Procedures | [phone] | | | | | | CT Guided | Fax: | | | | | | Biopsy Lung | [phone] | | | | | | Or [...] | | Primary | Saba, | [address]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, | [place], | | | | | 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 [address] | [place] [address] | | | | | left lung | [address] | Phone: | | | | | metastatic | [place], | [phone] | | | | | to other | [place] [address] | Fax: | | | | | site (HCC) | Phone: | [phone] | | | | | Procedures | [phone] | | | | | | CT Guided | Fax: | | | | | | Biopsy Lung | [phone] | | | | | | Or [...] + + | 07/22/ | Hospital | [facility] | Harris Garcia MD | 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 [address] [place] [address]. All righ ts reserved. This information is [...] includes: All prescription medicines Blood-thinning medicines (anticoagulants) Wanc-lkt-vscgqcy medicines such as aspirin or ibuprofen Street [...] you before the procedure. Date Last Reviewed: 08/31/201619993604-9798 [employer]. [address] [place] [address]. All righ ts reserved. This information is [...] You can't be awakened Date Last Reviewed: 01/18/201619992373-0074 [employer]. [address] [place] [address], [place] [address]. All righ ts reserved. This information is [...] 0 | 06/14/19 | | | (OPTIMAL-D) 99171 | MOUTH ONCE A WEEK | | [...] St. | | | | | | [place] | | | y | +---+--------+ | [...] cm with an | | | 18-gauge [employer] full core biopsy instrument. The patient tolerated [...] recommended. If testing is desired, please contact [facility] | | | Diagnostic with prior authorization if applicable. As part of | | | [facility]' Quality Improvement Program, this case was | [...] | | | Positive in tumor cells. JVR:[facility] GROSS DESCRIPTION: The | | | [...] component was performed by | | | [facility], [address] [place] [address] (Medical | | | Director: Radha Sanford MD; IA# [id number]). Professional | | | interpretation was performed by [facility] | | | [address] | | | [address] (Optometrist Owner: Sincere Torre M.D.). | | | Diagnostician: [...] | | | procedure. For use in [place] | | | score's greater than or [...]
--- OUTSIDE RECORDS SUMMARY | ~2018-08-06 | XMS | Encounter Summary ---
Demographics + + + | Address | [address] | | | [place] [address] | + + + | Home Phone | | + + + | Preferred Language | Unknown | + + + | Marital Status | | + + + | Uatsdin Affiliation | Unknown | + + + | Race | Unknown | + + + | Ethnic Group | Unknown | + + + Author + + + | Author | [facility] | | | and [place] | + + + | Organization | [facility] | | | and [place] [...] [place], [place] | | | | | [address] | | + + + + + Care Team Providers + +------+ + | Care Carpenter Supervisor Name | Role | Phone | [...] | | Primary | Saba, | [address] | | | | | malignant | Tucker Stephens, | [place], | | | | | 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 [address] | [place] [address] | | | | | left lung | [address] | Phone: | | | | | metastatic | [place], | [phone] | | | | | to other | [place] [address] | Fax: | | | | | site (HCC) | Phone: | [phone] | | | | | Procedures | [phone] | | | | | | CT Guided | Fax: | | | | | | Biopsy Lung | [phone] | | | | | | Or [...] metastatic to | | | | [address] [place] | [place] [address] | other site (HCC) | | | | [place] [address] | [phone] | | | | | [phone] | | | +--------+ + + + [...] cm with an | | | 18-gauge PT [employer] full core biopsy instrument. The patient tolerated [...]
--- OUTSIDE RECORDS SUMMARY | ~2018-08-06 | XMS | Encounter Summary ---
Demographics + + + | Address | [address] | | | [place] [address] | + + + | Home Phone | | + + + | Preferred Language | Unknown | + + + | Marital Status | | + + + | Religion Affiliation | Unknown | + + + | Race | Unknown | + + + | Ethnic Group | Unknown | + + + Author + + + | Author | [facility] | | | and [place] | + + + | Organization | [facility] | | | and [place] [...] [place] | | | | | [address] | | + + + + + Care Team Providers + +------+ + | Care Submarine Cable Equipment Technician Name | Role | Phone | + [...] | | | | | [address] | [place] | | | | | [place] | [address] | | | | | [address] | [phone] | | | | | [phone] | | | +--------+---------+ + + + [...] and jason julieta skin Date Last Reviewed: 05/03/201619995530-7722 The [employer]. [address] [place] [address], [place] [address]. All righ ts reserved. This information is [...] includes: All prescription medicines Blood-thinning medicines (anticoagulants) Vvqj-wnc-rvlerdq medicines such as aspirin or ibuprofen Street [...] you before the procedure. Date Last Reviewed: 08/31/201619996596-1306 [employer]. [address] [place] [address]. All righ ts reserved. This information is [...] You can't be awakened Date Last Reviewed: 01/18/201619991881-3312 [employer]. [address] [place] [address], [place] [address]. All righ ts reserved. This information is [...] 0 | 06/14/19 | | | (OPTIMAL-D) [address]13[address] | MOUTH ONCE A WEEK | | [...] St. | | | | | | [place] | | | y | +---+--------+ | [...] cm with an | | | 18-gauge [employer] full core biopsy instrument. The patient [...] recommended. If testing is desired, please contact [facility] | | | Diagnostic with prior authorization if applicable. As part of | | | [employer]' Quality Improvement Program, this case was | | | reviewed by another member of our pathology staff. | | | JVR:[facility]:C1NR MICROSCOPIC EXAMINATION: Histologic sections of | [...] | | | Positive in tumor cells. JVR:[facility] GROSS DESCRIPTION: The | | | [...] component was performed by | | | [facility] [employer], [address] [place] [address] (Medical | | | Director: Radha Sanford MD; CLIA# [id number]). Professional | | | [facility] | | | [address] | | | [address] (Salesperson [employer] D[employer]: Sincere Torre M.D.). | | | Diagnostician: [...] | | | procedure. For use in [place] | | | score's greater than or [...]
[~2018-08-06 08:08] MED LIST: DEXAMETHASONE4 MG PO; FOLIC ACID1 MG PO; HYDROXYZINE HCL25 MG PO; LORAZEPAM1 MG PO; PROLIA60 MG/1 ML SUB-Q; REMERON15 MG PO; ROPINIROLE HCL1 MG PO; TRELEGY ELLIPT1 EACH INH; VITAMIN D50000 UNI1 PO; ZOFRAN8 MG PO
--- OUTSIDE RECORDS SUMMARY | 2018-08-06 08:10 | XMS ---
PreManage Notification: DANNIELLE WATKINS Security Loss Control Technician Events No recent Security Events currently on file [facility] There are no care providers on record at this time. Tobi has no Care Guidelines for this patient. Yanique VISIT COUNT (12 MO.) 1 JACQUELYN Jarvis TOTAL 1 NOTE: Visits indicate total known visits. ED/UCC VISIT TRACKING (12 MO.) 08/06/2018 08:08 JACQUELYN Alexander [place] TYPE: Emergency COMPLAINT: - FEVER INPATIENT VISIT TRACKING (12 MO.) No inpatient visits to display in this time frame [email or web address]
[2018-08-06] MEDS ORDERED: MORPHINE SULFAT15 MG PO (08:33)
== END 2018-08-06 11:45 | disposition home or self-care (01) ==
LOC: ED 08:08
DX: C34.90 Malignant neoplasm of unspecified part of unspecified bronchus or lung (principal); Z79.899 Other long term (current) drug therapy
CPT/HCPCS: 36415; 71045; 80053; 85025; 99284-25